=== PATIENT | female | born 1960 | race Caucasian/White ===

== ENCOUNTER → 2017-08-04 16:42 | Outpatient (CLI) | payer OTHER, MEDICAID, SELFPAY ==
[2017-08-04 17:27] LABS: Hematocrit 44.2 % (36-46); Hemoglobin 15.1 g/dL (12.0-16.0); Mean Corpuscular HGB Conc 34.2 % (30-36); Mean Corpuscular Hemoglobin 30.7 PG (26-34); Mean Corpuscular Volume 89.8 fL (80-100); Platelet Count 227 X10^3/uL (150-400); Red Blood Cell Count 4.92 X10^6/uL (4.0-5.2); White Blood Cell Count 8.6 X10^3/uL (4.5-11.0)
[2017-08-04 17:55] LABS: BUN Creatinine Ratio 24.3 (6-22); Calcium 9.8 mg/dL (8.4-10.2); Estimated Glomerular Filt Rate > 60.0 mL/min (>60); Glucose 85 mg/dL (70-100); HEMOLYSIS < 15 (0-50); Potassium 4.5 mmol/L (3.4-5.1); Sodium 140 mmol/L (137-145)
== END ==
PROVIDERS: PCP Family Medicine; Visit Provider Nurse Practitioner Family
DX: R93.1 Abnormal findings on diagnostic imaging of heart and coronary circulation (principal); I20.0 Unstable angina
CPT/HCPCS: 36415; 80048; 85027

== ENCOUNTER 2019-04-19 19:18 | Emergency (ER) | payer OTHER, MEDICAID, SELFPAY ==
--- NOTE | 2019-04-19 19:31 | ED.GENADULT ---
HPI - General Adult General Chief complaint: Chest Pain Stated complaint: chest pain Time Seen by Provider: 04/19/19 19:29 Source: patient Mode of arrival: Ambulatory Limitations: no limitations History of Present Illness HPI narrative: 58-year-old female. Has a history of atrial fibrillation. Was just diagnosed 10 days ago. Is on Eliquis. She has also been taking 50 mg of metoprolol 2 times a day. This was increased from 25 mg 2 times a day 10 days ago. States that for the past several days she has had increasing frequency of the palpitations. She is also complaining of retrosternal chest pain. Has been constant since earlier today. Went to her primary doctor over on [place] [facility] EKG was performed. Showed a sinus bradycardia with a rate of 47. And occasional PVCs. She was told to come to this emergency department for evaluation. Related Data Home Medications Medication Instructions Recorded Confirmed alprazolam [Xanax] 0.5 mg PO PRN PRN #0 07/03/16 ibuprofen 600 mg PO Q6HP PRN #0 07/03/16 Previous Rx's Medication Instructions Recorded sotalol 80 mg PO BID #14 tab 04/19/19 Allergies Allergy/AdvReac Type Severity Reaction Status Date / Time codeine [CODEINE] AdvReac Intermediate NAUSEA, Unverified 06/23/17 13:02 VOMITING hydrocodone [From VICODIN] AdvReac Intermediate NAUSEA Unverified 06/23/17 13:02 hydromorphone [HYDROMORPHONE] AdvReac Intermediate NAUSEA, Unverified 06/23/17 13:02 VOMITING oxycodone [From TYLOX] AdvReac Intermediate NAUSEA, Unverified 06/23/17 13:02 VOMITING Review of Systems Constitutional Constitutional: Denies fever(s), Denies frequent falls, Denies headache(s) and Denies weakness ENT Ears, Nose, Mouth, and Throat: Denies vertigo, Denies dizziness, Denies headache(s) and Denies disequilibrium Cardiovascular Cardiovascular: Reports chest pain, Reports rapid heart rate, Denies edema, Reports palpitations and Denies dyspnea Respiratory Respiratory: Denies dyspnea Gastrointestinal Gastrointestinal: Denies abdominal pain, Denies nausea and Denies vomiting Genitourinary Genitourinary: Denies dysuria Musculoskeletal Musculoskeletal: Denies myalgias and Denies arthralgias Integumentary/Breasts Skin/Breast: Denies lesions and Denies rash Neurologic Neurologic: Denies vertigo, Denies dizziness, Denies frequent falls, Denies headache(s), Denies disequilibrium and Denies weakness Endocrine Endocrine: Reports palpitations Hematologic/Lymphatic Hematologic/Lymphatic: Denies easy bleeding and Denies easy bruising Patient History Medical History Atrial fibrillation (Inactive) Surgical History (Updated 07/13/17 @ 06:25 by Trixie Gomez MD) History of third molar tooth extraction Status post cholecystectomy Status post tonsillectomy and adenoidectomy Status post tubal ligation Family History (Updated 06/29/16 @ 00:00 by Conversion Provider) Mother Age: 79 Heart disease Social History lives independently: Yes Exam Initial Vital Signs Initial Vital Signs: Vital Signs Temperature 98.1 F 04/19/19 19:32 Pulse Rate 116 H 04/19/19 19:32 Respiratory Rate 16 04/19/19 19:32 Blood Pressure 137/82 04/19/19 19:32 Pulse Oximetry 98 04/19/19 19:32 Const General: cooperative, healthy appearing and comfortable Limitations: mental status not altered Chest Chest: normal inspection of the chest Resp Effort & Inspection: normal respiratory effort Auscultation: clear to auscultation bilaterally Cardio Rate: regular rate Rhythm: regular rhythm Pulses: radial pulses present GI Inspection: non-distended Palpation: soft Skin Lesions: no lesions Rashes: no rashes Neuro General: alert and awake Cognition: normal cognition Speech: speech normal Extrem General: normal to inspection and capillary refill normal Psych Appearance: grossly normal and well kempt Scores GCS Shaneka coma scale eye opening: Spontaneous [place] coma scale verbal response: Orientated [place] coma scale motor response: Obey commands [place] coma scale total score: 15 Course Orders Ordered: ED Orders 04/19/19 19:30 XR chest 1V Stat EKG-12 Lead Stat 04/19/19 19:33 Complete Blood Count AUTO DIFF Stat Comprehensive Metabolic Panel Stat Lipase Stat Partial Thromboplastin Time Stat Prothrombin Time INR Stat Troponin & CK Cardiac Panel Stat 04/19/19 21:55 Troponin I Stat Vital Signs Vital signs: Vital Signs - 8 hr 04/19/19 19:32 04/19/19 22:01 04/19/19 22:35 Temperature 98.1 F Pulse Rate 116 H 52 L 83 Respiratory Rate 16 17 21 Blood Pressure [Right Arm] 137/82 120/74 115/61 Pulse Oximetry 98 98 97 04/19/19 22:42 Temperature Pulse Rate 50 L Respiratory Rate 16 Blood Pressure [Right Arm] 115/61 Pulse Oximetry 97 Medical Decision Making Lab Data Lab results reviewed: Yes I reviewed the patient's lab results. Result diagrams: 04/19/19 19:33 04/19/19 19:33 Labs: Lab Results 04/19/19 04/19/19 04/19/19 Range/Units 19:33 19:33 19:33 WBC 7.9 (4.5-11.0) X10^3/uL RBC 5.28 H (4.0-5.2) X10^6/uL Hgb 16.4 H (12.0-16.0) g/dL Hct 48.1 H (36-46) % MCV 91.1 (80-100) fL MCH 31.0 (26-34) PG MCHC 34.0 (30-36) % RDW 13.5 (11.6-14.8) % Plt Count 233 (150-400) X10^3/uL Neut % (Auto) 55.7 (50-75) % Lymph % (Auto) 33.9 (25-40) % Harrison % (Auto) 7.3 (3-14) % Eos % (Auto) 2.3 (2-4) % Baso % (Auto) 0.8 (0-2) % Neut # (Auto) 4400 (1197-7898) /uL Lymph # (Auto) 2700 (5995-5797) /uL Harrison # (Auto) 600 (0-900) /uL Eos # (Auto) 200 (0-450) /uL Baso # (Auto) 100 (0-100) /uL PT 15.5 H (10.1-12.7) SECONDS INR 1.4 H (0.9-1.3) APTT 38 H (26.4-36.2) SECONDS Sodium 139 (137-145) mmol/L Potassium 3.8 (3.4-5.1) mmol/L Chloride 102 (98-107) mmol/L Carbon Dioxide 27 (22-32) mmol/L BUN 14 (7-17) mg/dL Creatinine 0.70 (0.52-1.04) mg/dL Estimated GFR > 60.0 (>60) mL/min BUN/Creatinine Ratio 20.0 (6-22) Glucose 88 (70-100) mg/dL Calcium 10.0 (8.4-10.2) mg/dL Total Bilirubin 1.3 (0.2-1.3) mg/dL AST 29 (14-36) IU/L ALT 33 (<35) IU/L Alkaline Phosphatase 97 (38-126) U/L Total Creatine Kinase < 20 L (30-135) U/L CK-MB (CK-2) TNP CK-MB (CK-2) Rel Index TNP Troponin I < 0.012 (0.01-0.034) ng/mL Total Protein 8.3 H (6.3-8.2) g/dL Albumin 4.7 (3.5-5.0) g/dL Globulin 3.6 (1.7-4.1) g/dL Albumin/Globulin Ratio 1.3 (1.0-2.8) Lipase 55 (23-300) U/L 04/19/19 Range/Units 21:55 WBC (4.5-11.0) X10^3/uL RBC (4.0-5.2) X10^6/uL Hgb (12.0-16.0) g/dL Hct (36-46) % MCV (80-100) fL MCH (26-34) PG MCHC (30-36) % RDW (11.6-14.8) % Plt Count (150-400) X10^3/uL Neut % (Auto) (50-75) % Lymph % (Auto) (25-40) % Harrison % (Auto) (3-14) % Eos % (Auto) (2-4) % Baso % (Auto) (0-2) % Neut # (Auto) (3663-4523) /uL Lymph # (Auto) (3389-0004) /uL Harrison # (Auto) (0-900) /uL Eos # (Auto) (0-450) /uL Baso # (Auto) (0-100) /uL PT (10.1-12.7) SECONDS INR (0.9-1.3) APTT (26.4-36.2) SECONDS Sodium (137-145) mmol/L Potassium (3.4-5.1) mmol/L Chloride (98-107) mmol/L Carbon Dioxide (22-32) mmol/L BUN (7-17) mg/dL Creatinine (0.52-1.04) mg/dL Estimated GFR (>60) mL/min BUN/Creatinine Ratio (6-22) Glucose (70-100) mg/dL Calcium (8.4-10.2) mg/dL Total Bilirubin (0.2-1.3) mg/dL AST (14-36) IU/L ALT (<35) IU/L Alkaline Phosphatase (38-126) U/L Total Creatine Kinase (30-135) U/L CK-MB (CK-2) CK-MB (CK-2) Rel Index Troponin I < 0.012 (0.01-0.034) ng/mL Total Protein (6.3-8.2) g/dL Albumin (3.5-5.0) g/dL Globulin (1.7-4.1) g/dL Albumin/Globulin Ratio (1.0-2.8) Lipase (23-300) U/L Imaging Data Chest x-ray: Radiologist's Impression: [place] [address] XRay Report Signed Patient: Danay Estevez LMR#: [id number] : 1960Acct:[id number] Age/Sex: 58 / FDate of Service: 04/19/19 Loc: ED Accession Number: [id number] Procedure: XR chest 1V Ordering Provider: Liang Roblero D.O. PROCEDURE: XR CHEST 1V INDICATIONS: Chest pain TECHNIQUE: One view of the chest was acquired. COMPARISON: None. FINDINGS: Surgical changes and devices: None. Lungs and pleura: Lungs are clear. No pleural effusions or pneumothorax. Mediastinum: Mediastinal contours appear normal. Heart size is normal. Bones and chest wall: No suspicious bony lesions. Overlying soft tissues appear unremarkable. Convex rightward scoliosis. IMPRESSION: Convex rightward scoliosis centered at the junction of the middle and lower thoracic spine, otherwise normal for age, source of current chest pain symptoms is not seen. Dictated by: Alexandru Mancia M.D. on 04/19/2019 at 20:10 Approved by: Alexandru Mancia M.D. on 04/19/2019 at 20:11 ECG Data Attestation: I personally reviewed and interpreted this ECG as follows: Prior ECG tracings: not available for review Interpretation: Sinus bradycardia Ventricular rate of 51 Normal axis QRS [address] wave changes MDM Narrative Medical decision making narrative: Patient was in sinus rhythm upon arrival but then did have episodes of atrial fibrillation. Her rates went from the 50s in sinus rhythm to 130s in AFib. Her troponins were negative x2. Chest x-ray is unremarkable. Discussed the case with Dr. Dent was on-call for the patient's technician helper instrument. He was able to look at her note and her technician helper instrument stated that at the increase in metoprolol did not improve her symptoms that the plan was to change her to sotalol. The plan will be is for us to switch her from her metoprolol to 80 mg of sotalol b.i.d.. Patient was instructed to not take her metoprolol this evening which she has not done. She was given a prescription so that she can fill the sotalol tomorrow morning. A long-term prescription was sent to her pharmacy over [facility] by Dr. Dent. The technician helper instrument office will contact her for follow-up. Patient was given return precautions and follow-up instructions. She expressed understanding agreement plan. Discharge Plan Departure Patient Disposition: Home Clinical Impression: Atypical chest pain Atrial fibrillation Qualifiers: Atrial fibrillation type: paroxysmal Qualified Code(s): I48.0 - Paroxysmal atrial fibrillation Discharge Date/Time: 04/19/19 22:52 Instructions: DI for Atypical Chest Pain Activity Restrictions/Additional Instructions: Your technician helper instrument office recommended that you stop taking the metoprolol and start taking the sotalol as directed. Expect a phone call from their office to discuss follow-up. Return to the emergency department for any new or worsening symptoms Prescriptions: New sotalol 80 mg tablet 80 mg PO BID Qty: 14 RF: 0 No Action ibuprofen 600 MG tablet 600 mg PO Q6HP PRNQty: 0 RF: 0 alprazolam [Xanax] 0.5 MG tablet 0.5 mg PO PRN PRNQty: 0 RF: 0 Referrals: Akhil Olson MD [Primary Care Provider] -
[2019-04-19 19:32] VITALS: BP 137/82; PULSE 116; RESP 16; TEMP 36.7; O2SAT 98
[2019-04-19 19:50] LABS: INR 1.4 (0.9-1.3); Prothrombin Time 15.5 SECONDS (10.1-12.7)
[2019-04-19 19:53] LABS: PTT Partial Thromboplastin Tim 38 SECONDS (26.4-36.2)
[2019-04-19 19:54] LABS: Add Manual Diff / Slide Review NO; Basophils Absolute Auto 100 /uL (0-100); Basophils Percent Auto 0.8 % (0-2); Eosinophils Absolute Auto 200 /uL (0-450); Eosinophils Percent Auto 2.3 % (2-4); Hematocrit 48.1 % (36-46); Hemoglobin 16.4 g/dL (12.0-16.0); Lymphocytes Absolute Auto 2700 /uL (1100-4500); Lymphocytes Percent Auto 33.9 % (25-40); Mean Corpuscular Volume 91.1 fL (80-100); Monocytes Absolute Auto 600 /uL (0-900); Monocytes Percent Auto 7.3 % (3-14); Neutrophils Absolute Auto 4400 /uL (1500-7000); Neutrophils Percent Auto 55.7 % (50-75); Platelet Count 233 X10^3/uL (150-400); Red Blood Cell Count 5.28 X10^6/uL (4.0-5.2); Red Cell Distribution Width 13.5 % (11.6-14.8); White Blood Cell Count 7.9 X10^3/uL (4.5-11.0)
[2019-04-19 19:58] LABS: Alanine Aminotransferase 33 IU/L (<35); Albumin 4.7 g/dL (3.5-5.0); Albumin Globulin Ratio 1.3 (1.0-2.8); Alkaline Phosphatase 97 U/L (38-126); Aspartate Aminotransferase 29 IU/L (14-36); Bilirubin Total 1.3 mg/dL (0.2-1.3); Blood Urea Nitrogen 14 mg/dL (7-17); Carbon Dioxide 27 mmol/L (22-32); Chloride 102 mmol/L (98-107); Creatine Kinase < 20 U/L (30-135); Estimated Glomerular Filt Rate > 60.0 mL/min (>60); Globulin 3.6 g/dL (1.7-4.1); Glucose 88 mg/dL (70-100); HEMOLYSIS < 15 (0-50); Lipase 55 U/L (23-300); Potassium 3.8 mmol/L (3.4-5.1); Sodium 139 mmol/L (137-145); Total Protein 8.3 g/dL (6.3-8.2)
[2019-04-19 20:09] LABS: Troponin I < 0.012 ng/mL (0.01-0.034)
[2019-04-19 22:01] VITALS: BP 120/74; PULSE 52; RESP 17; O2SAT 98
[2019-04-19 22:23] LABS: Troponin I < 0.012 ng/mL (0.01-0.034)
[2019-04-19 22:35] VITALS: BP 115/61; PULSE 83; RESP 21; O2SAT 97
[2019-04-19 22:42] VITALS: BP 115/61; PULSE 50; RESP 16; O2SAT 97
== END 2019-04-19 22:52 | disposition home or self-care (01) ==
PROVIDERS: Emergency Provider Emergency Medicine; Family Provider Family Medicine; PCP Family Medicine
DX: R07.89 Other chest pain (principal); I48.0 Paroxysmal atrial fibrillation
CPT/HCPCS: 36415; 71045; 80053; 82550; 83690; 84484; 85025; 85610; 85730; 93005; 99284; 99285

== ENCOUNTER 2023-02-22 14:29 | Day surgery (SDC) | payer OTHER, SELFPAY ==
[2023-02-18 07:42] VITALS: BMI 40.8
--- NOTE | 2023-02-22 | PATH_ITS ---
[facility] Accession Number: [id number] No. of containers..01 Tissue . 01 Material submitted: . endometrium - ENDOMETRIAL POLYP . 01 Diagnosis: Endometrial Polyp: Portions of disordered proliferative endometrium; negative for glandular hyperplasia, cytologic atypia, or malignancy. Some endometrial fragments demonstrate prominent vessels, suggestive of polyp, if clinical and imaging studies are concordant. Fragments of squamous mucosa with reactive features; negative for dysplasia or malignancy. Scant myometrial fragments; negative for significant atypia. [facility] 03/03/2023 1651 Local . 01 Electronically signed: . Bertha Jimenez MD, Pathologist NPI- [id number] . 01 Gross description: . ENDOMETRIAL POLYP: Received in formalin is multiple fragment(s) of carrillo, soft tissue measuring 3.0 x 1.0 x 0.2 cm in aggregate submitted entirely in 1 cassette(s) /AAY 02/23/2023 0548 Local . 01 Pathologist provided ICD-10: N95.0 . 01 CPT . 210853 Specimen Comment: A courtesy copy of this report has been sent to [facility] Pathology Performed at: 01 [facility] Cyt[facility] [address] [place] [address] [address], [place], [place] [id number] MD Jacob Maldonado MD Phone: [phone]
[2023-02-22 14:53] VITALS: BP 131/86; PULSE 64; RESP 16; TEMP 36.3; O2SAT 96; BMI 40.8
[2023-02-22] MEDS: LACTATED RINGERS 1,000 ML 42 ML IV (15:01)
--- NOTE | 2023-02-22 15:26 | PM.PREOP ---
Pre-operative Note Interval Note History & Physical reviewed/Exam performed by Physician: Yes Changes to H&P: No H&P completed within 30 days and has changed as indicated here:: See H&P from 02/17/23. No changes to her history, and pt desires to proceed with procedure as planned.
[2023-02-22] MEDS: LIDOCAINE 1% 20 ML INJ (16:03)
--- NOTE | 2023-02-22 16:06 | SUR.OPER ---
Lithotomy on padded OR bed, head on pillow, arms secured on padded arm boards at <90 degrees abduction. Legs secured in padded yellow fins stirrups.
[2023-02-22 16:30] VITALS: BP 122/59; PULSE 71; RESP 21; TEMP 36.4; O2SAT 97
[2023-02-22 16:35] VITALS: BP 117/69; PULSE 67; RESP 17; O2SAT 97
--- NOTE | 2023-02-22 16:36 | PM.OP.1 ---
Operative Date/Time/Diagnoses Date of procedure: 02/22/23 Time of procedure: 16:36 Pre-op diagnosis: 1. Submucosal uterine leiomyoma Post-op diagnosis: other (1. Uterine leiomyoma (FIGO type >3) 2. Endometrial polyp) Procedure & Clinicians Procedure: Diagnostic hysteroscopy Hysteroscopic polypectomy Same procedure as scheduled: No Indications: 62-year-old female with known uterine fibroid, diagnosed in 2020 with a large submucosal uterine fibroid on pelvic ultrasound, measuring 1 8 (?) x 7.5 x 7.1 cm. She had a negative endometrial biopsy at that time. She has since had very little vaginal bleeding, stating that she has a small amount on the toilet paper every few months. She has some pressure symptoms, feeling like she has some urgency with bowel movements. Denies any difficulty voiding. Surgeon: Chelle Castillo Click Yes if Unassisted: Yes Anesthesia Type: General Operative Notes Findings: Atrophic endometrium with small endometrial polyp at the fundus. No intracavitary fibroids visualized. Specimen(s): other (endometrial polyp) Estimated Blood Loss (mL): 5 Procedure in detail: The risks, benefits, indications and alternatives of the procedure were reviewed with the patient and informed consent was obtained. The pt was taken to the operating room where general anesthesia was obtained without difficulty. The pt was then placed in the low lithotomy position using gel-padded Artemio stirrups. Sequential compression devices were placed bilaterally for VTE prophylaxis. The pt was then prepped and draped in the sterile fashion. A sterile speculum was placed in the patient?s vagina and the cervix was visualized. A single tooth tenaculum was used to grasp the anterior lip of the cervix. A paracervical block was then performed using appoximately 5cc of 1% Lidocaine without epinephrine. The cervix was then gently, dilated to a size 6 Hegar dilator. The Myosure hysteroscope was first primed and pressure set. The operative hysteroscope was then advanced through the endocervical canal under direct visualization. The uterus was distended with warm saline, and notable for the above findings. The Myosure Reach was then inserted into the operative hysteroscope. Resection of the endometrial polyp was completed. The operative hysteroscope was then removed under direct visualization. Tissue obtained was sent to pathology for review. The single tooth tenaculum was removed from the anterior lip of the cervix. The tenaculum site was noted to be hemostatic after direct pressure was applied. All instruments were then removed from the patient?s vagina. Hysteroscopic fluid deficit was 190cc of normal saline. The patient tolerated the procedure well. At the completion of the case the sponge and needle counts were correct x 2. The patient was taken to the PACU in stable condition. Complications: none Post-operative Condition: stable Disposition: PACU Plan for aftercare: Discharge to home once patient is meeting all discharge criteria.
[2023-02-22 16:41] VITALS: BP 127/73; PULSE 62; RESP 12; O2SAT 97
[2023-02-22] MEDS: BENZOCAINE/MENTHOL 1 LOZ PKT 1 EACH PO (16:45)
[2023-02-22 16:47] VITALS: BP 120/71; PULSE 62; RESP 18; O2SAT 96
[2023-02-22 16:52] VITALS: BP 124/78; PULSE 59; RESP 15; TEMP 36.3; O2SAT 95
== END 2023-02-22 17:31 | disposition home or self-care (01) ==
PROVIDERS: Family Provider Family Medicine; PCP Family Medicine; Referring Provider Student in an Organized Health Care Education/Training Program; Visit Provider Student in an Organized Health Care Education/Training Program
PROC: 0UDB8ZZ Extraction of Endometrium, Via Natural or Artificial Opening Endoscopic (ICD-10-PCS; CPT 58558; principal; 2023-02-22 15:30)
DX: N95.0 Postmenopausal bleeding (principal); N84.0 Polyp of corpus uteri
CPT/HCPCS: 58558; J0330; J1100; J2250; J2405; J2704; J3010

== ENCOUNTER → 2025-01-10 08:36 | Outpatient (CLI) | payer MEDICARE, OTHER, SELFPAY ==
--- NOTE | 2025-01-10 08:40 | DI.RAD.S_ITS ---
PROCEDURE: XR DEXA AXIAL SKELETON INDICATIONS: Postmenopausal Screening COMPARISON: None. FINDINGS: Lumbar Spine L1, L3/L4: Bone mineral density 0.764 g/cm2, T score -2.6, osteoporosis. Left Femoral Neck: Bone mineral density 0.632 g/cm2, T score -2.0, osteopenia. Left Hip: Bone mineral density 0.774 g/cm2, T score -1.4, osteopenia. Fracture Risk Calculation (when applicable): 10-year fracture risk of a major osteoporotic fracture 11 percent and of a hip fracture 1.8 percent. FRAX score is not valid due to presence of osteoporosis. (T score greater or equal to -1.0 to: NORMAL) (T score from -1.1 to -2.4: OSTEOPENIA) (T score less than or equal to -2.5: OSTEOPOROSIS) IMPRESSION: Osteoporosis. The patient is at a high risk of fracture. Follow-up guidelines as follows: Osteoporosis: Consider a repeat DEXA and Vertebral Fracture Assessment (VFA) exam in 2 years or sooner if medically necessary, to reassess this patient's status. Osteopenia: Consider a repeat DEXA in 2-3 years to reassess this patient's status, or if there is a new clinical indication. Normal: Consider a repeat DEXA in 5 years or sooner, or if there is a new clinical indication. All treatment decisions require clinical judgment and consideration of individual patient factors, including patient preferences, comorbidities, previous drug use, risk factors not captured in the FRAX model (e.g., frailty, falls, vitamin D deficiency, increased bone turnover, interval significant decline in bone density ) and possible under- or over-estimation of fracture risk by FRAX. In addition, the NOF Guide recommends that FDA-approved medical therapies be considered in postmenopausal women and men age >= 50 years with a: * Hip or vertebral (clinical or morphometric) fracture * T-score of <=-2.5 at the spine or hip * Ten-year fracture probability by FRAX of >= 3% for hip fracture or >=20% for major osteoporotic fracture. Dictated by: Lindsey Donnelly M.D. on 01/10/2025 at 11:54 Approved by: Lindsey Donnelly M.D. on 01/10/2025 at 11:55
--- NOTE | 2025-01-10 08:40 | DI.MG.S_ITS ---
MM screening mammo BI: 01/10/2025. BI-RADS: 0 CLINICAL: 64-year old female for bilateral screening mammogram. Tyrer-Cuzick lifetime risk of 7.6%. No personal or first-degree family history of breast cancer. PRIOR EXAMS 11/23/2019, 07/29/2017. MAMMOGRAPHY TECHNIQUE: 2D and 3D (tomosynthesis) digital mammographic views obtained, with additional images as needed for full coverage. Current study was also evaluated with a Computer Aided Detection (CAD) system. DENSITY C. The breasts are heterogeneously dense, which may obscure small masses. MAMMOGRAPHY FINDINGS Right: No suspicious mass, asymmetry, microcalcification, or other abnormality seen. Left: MLO only, Upper, Anterior depth: Asymmetry needing additional imaging evaluation. IMPRESSION: Right * No evidence of malignancy. Left (Asymmetry): MLO only, Upper, Anterior depth * Incomplete - asymmetry needing additional imaging evaluation. RECOMMENDATIONS Left: MLO only, Upper, Anterior depth * Further evaluation with diagnostic mammography and diagnostic ultrasound. Ultrasound to be performed only if needed. OVERALL ASSESSMENT CATEGORY BI-RADS-0: Incomplete - Need Additional Imaging Evaluation. ELECTRONICALLY SIGNED: Bridgette Lujan M.D. on 01/10/2025 at 12:53:23 PM PT Interpreting Station ID: [id number]
== END ==
LOC: MAMMO 08:37
PROVIDERS: Family Provider Family Medicine; PCP Family Medicine; Referring Provider Family Medicine; Visit Provider Family Medicine
DX: Z12.31 Encounter for screening mammogram for malignant neoplasm of breast (principal); R92.333 Mammographic heterogeneous density, bilateral breasts; M81.0 Age-related osteoporosis without current pathological fracture; Z78.0 Asymptomatic menopausal state
CPT/HCPCS: 77063; 77067; 77080

== ENCOUNTER → 2025-03-13 09:38 | Outpatient (CLI) | payer MEDICARE, OTHER, SELFPAY ==
--- NOTE | 2025-03-13 09:40 | DI.MG.S_ITS ---
MM diagnostic mammo unilat LT, US breast LT limited: 03/13/2025 BI-RADS: 3 CLINICAL: 64-year old female for left diagnostic mammogram and left diagnostic breast ultrasound that is a recall from screening on 01/10/2025. Tyrer-Cuzick lifetime risk of 7.6%. No personal or first-degree family history of breast cancer. PRIOR EXAMS 01/10/2025, 11/23/2019, 07/29/2017. MAMMOGRAPHY TECHNIQUE: 2D and 3D (tomosynthesis) digital mammographic views obtained, with additional images as needed for full coverage. Current study was also evaluated with a Computer Aided Detection (CAD) system. ULTRASOUND TECHNIQUE Real-time vieira scale and color doppler imaging of the area of clinical interest was performed with image documentation. Left targeted breast ultrasound of the area of clinical interest and the axilla was performed with image documentation. DENSITY Left: C. The breast is heterogeneously dense, which may obscure small masses. MAMMOGRAPHY FINDINGS Left: MLO only, Upper Quadrant, Anterior depth: The asymmetry seen on recent screening mammogram did not persist with additional imaging and is consistent with superimposition of normal breast tissue. ULTRASOUND FINDINGS Left: Upper Outer at 1:30, 3 cm from nipple: There is a dilated duct containing echogenic material. Doppler shows no vascularity. This is an incidental finding. Left: Upper Inner at 11:00, 3.5 cm from nipple, measuring 0.8 x 0.3 x 0.7 cm: There is a complicated cyst present. Doppler shows only rim vascularity. This is an incidental finding. Left: Upper Inner at 11:00, 3.5 cm from nipple, measuring 0.4 x 0.2 x 0.4 cm: There is a simple anechoic cyst. Doppler shows no vascularity. This is an incidental finding. Left: Axilla: No abnormal lymph nodes are seen in the axilla. IMPRESSION: Left (Duct): Upper Outer at 1:30, 3 cm from nipple * Probably Benign. Left (Complicated Cyst): Upper Inner at 11:00, 3.5 cm from nipple, measuring 0.8 x 0.3 x 0.7 cm * Probably Benign. RECOMMENDATIONS Left * Six month followup with diagnostic ultrasound. COMMENTS: Findings and recommendations were conveyed to the patient during today's evaluation. OVERALL ASSESSMENT CATEGORY BI-RADS-3: Probably Benign. ELECTRONICALLY SIGNED: Bridgette Lujan M.D. on 03/13/2025 at 05:07:50 PM PT Interpreting Station ID: [id number]
== END ==
LOC: MAMMO 09:39
PROVIDERS: Family Provider Family Medicine; PCP Physician Assistant; Referring Provider Nurse Practitioner; Visit Provider Nurse Practitioner
DX: R92.8 Other abnormal and inconclusive findings on diagnostic imaging of breast (principal); N60.02 Solitary cyst of left breast; N64.89 Other specified disorders of breast; R92.332 Mammographic heterogeneous density, left breast
CPT/HCPCS: 76642; 77065; G0279